=== PATIENT | male | born 1950 | race Caucasian/White ===

== ENCOUNTER 2018-08-06 03:59 | Inpatient (IN) | payer MEDICARE ==
[~2018-08-06] VITALS: Ht 190.5 cm; Wt 79.5 kg
[2018-08-06] VITALS (18 sets, daily range): BP systolic 105–138; BP diastolic 54–80
[~2018-08-06 03:59] MED LIST: CLIN150C8 PO; DIPH-186 PO; FERR325T28 PO; FLO0.4C PO; HYDR-3972 PO; LEVO100T9 PO
[2018-08-06] MEDS ORDERED: NO HOME MEDS (04:12)
[2018-08-06] MEDS ORDERED: ondansetron/PF 4mg/2ml inj IV ONE (04:20)
[2018-08-06] MEDS ORDERED: HYDROmorphone 1 mg/ml syringe IV ONE ×2 (04:20→05:40)
[2018-08-06 05:23] LABS: ALANINE AMINOTRANSFERASE 44 U/L (12-78); ALBUMIN 4.2 G/DL (3.4-5.0); ALBUMIN/GLOBULIN RATIO 1.1 (1.1-1.5); ALKALINE PHOSPHATASE 110 IU/L (46-116); ANION GAP 10 (8-16); ASPARTATE AMINO TRANSFERASE 21 U/L (10-37); BILIRUBIN,TOTAL 0.6 MG/DL (0.1-1.0); BLOOD UREA NITROGEN 17 MG/DL (7-18); BUN/CREATININE RATIO 16.5 (5.4-32.0); CALCIUM 9.4 MG/DL (8.5-10.1); CHLORIDE 99 MMOL/L (99-107); CREATININE 1.03 MG/DL (0.60-1.10); GLUCOSE 155 MG/DL (70-104); LIPASE 252 U/L (73-393); POTASSIUM 3.8 MMOL/L (3.5-5.1); SODIUM 139 MMOL/L (135-145); TOTAL CARBON DIOXIDE 30.5 MMOL/L (24-32); eGFR 72 ML/MIN
[2018-08-06 05:46] LABS: PARTIAL THROMBOPLASTIN TIME 25 SECONDS (22-32); PROTHROMBIN TIME 10.1 SECONDS (9.0-12.0)
[2018-08-06 06:10] LABS: BASOPHILS # (AUTO) 0.1 X10'3 (0-0.2); BASOPHILS % (AUTO) 0.4 % (0-1); EOSINOPHILS # (AUTO) 0.2 X10'3 (0-0.9); HEMATOCRIT 48.3 % (42.0-52.0); HEMOGLOBIN 17.8 g/dl (14.0-17.9); LYMPHOCYTES # (AUTO) 1.6 X10'3 (1.1-4.8); LYMPHOCYTES % (AUTO) 8.1 % (21-51); MEAN CORPUSCULAR HEMOGLOBIN 35.4 PG (27.0-31.0); MEAN CORPUSCULAR HGB CONC 36.9 % (33.0-36.5); MEAN CORPUSCULAR VOLUME 96.1 FL (78-98); MEAN PLATELET VOLUME 10.4 FL (7.4-10.4); MONOCYTES # (AUTO) 1.4 X10'3 (0-0.9); MONOCYTES % (AUTO) 7.1 % (2-12); NEUTROPHILS # (AUTO) 15.9 X10'3 (1.8-7.7); NEUTROPHILS % (AUTO) 83.4 % (42-75); PLATELET COUNT 213 X10'3 (140-440); RED BLOOD COUNT 5.03 X10'6 (4.70-6.10); RED CELL DISTRIBUTION WIDTH 13.4 % (11.5-14.5); WHITE BLOOD COUNT 19.2 X10'3 (4.5-11.0)
[2018-08-06] MEDS ORDERED: levoFLOXACIN-Levaquin 750MG/D5 150 ML IV ONE (06:55)
[2018-08-06 07:24] LABS: CLARITY,URINE CLEAR (Clear); COLOR,URINE Yellow (Yellow); PH,URINE 6.5 (4.8-8.0); UA COLLECTION TYPE CLN CATCH MIDSTREAM
[2018-08-06 07:25] LABS: GLUCOSE, URINE NEGATIVE (Neg); KETONES,URINE NEGATIVE (Neg); LEUKOCYTE ESTERASE ,URINE TRACE (Neg); NITRITES, URINE NEGATIVE (Neg); OCCULT BLOOD,URINE NEGATIVE (Neg); PROTEIN,URINE NEGATIVE (Neg); UROBILINOGEN,URINE 0.2 E.U/dL (0.2-1.0)
[2018-08-06 07:30] LABS: BACTERIA,URINE NONE SEEN /HPF (Neg); RBC,URINE NONE SEEN /HPF (0-2); SQUAMOUS EPITHELIAL CELL,UR FEW /LPF (FEW); WBC,URINE 0-4 /HPF (0-4)
[2018-08-06] MEDS ORDERED: magnesium Cl slow-release 64mg tablet PO PRN (08:45)
[2018-08-06] MEDS ORDERED: ondansetron/PF 4mg/2ml inj IV PRN (08:45)
[2018-08-06] MEDS ORDERED: magnesium 1gm/100ml D5W IVPB 100 ML IV PRN (08:45)
[2018-08-06] MEDS ORDERED: bisacodyl 10mg suppository rectal RC PRN (08:45)
[2018-08-06] MEDS ORDERED: acetaminophen 325mg tablet PO PRN (08:45)
[2018-08-06] MEDS ORDERED: HYDROcodone/acetaminophen 5mg/325mg tablet PO PRN (08:45)
[2018-08-06] MEDS ORDERED: morphine 2 MG/ML inj. syringe IV PRN (08:45)
[2018-08-06] MEDS ORDERED: magnesium 4gm in 100ml NS 100 ML IV PRN (08:45)
[2018-08-06] MEDS ORDERED: magnesium hydroxide 30ml (MOM) UD suspension PO PRN (08:45)
[2018-08-06] MEDS ORDERED: mag hydrox/Alum hydrox/simeth 30ml oral suspension PO PRN (08:45)
[2018-08-06] MEDS ORDERED: potassium Cl 20 mEq SR tablet PO PRN ×2 (08:45)
[2018-08-06] MEDS ORDERED: potassium Cl 40MEQ/NS 500ml 500 ML IV PRN ×2 (08:45)
[2018-08-06] MEDS: potassium cl 20mEq in 1/2 NS 1,000 ML IV SCH (09:25)
[2018-08-06] MEDS: pantoprazole 40 MG vial IV SCH (09:26)
[2018-08-06] MEDS ORDERED: meperidine/PF 100mg/ml syringe ONE (11:23)
[2018-08-06] MEDS ORDERED: fentaNYL/PF 50MCG/1 ML 2ML syringe ONE (11:23)
[2018-08-06] MEDS ORDERED: LIDOcaine Viscous 15ml cup ONE (11:24)
[2018-08-06] MEDS ORDERED: glucagon, human recombinant 1mg kit ONE (11:24)
[2018-08-06] MEDS ORDERED: diphenhydrAMINE 50 mg/ml inj ONE ×2 (11:24→18:06)
[2018-08-06] MEDS ORDERED: MIDAZolam 5mg/5ml vial ONE ×2 (11:24)
[2018-08-06 11:25] LABS: TOTAL CELLS COUNTED 100
[2018-08-06] MEDS ORDERED: iohexol 300 MG/1 ML 50ml polymer ONE (11:25)
[2018-08-06 11:26] LABS: PLATELET ESTIMATE NORMAL
[2018-08-06 11:34] LABS: HYPOGRANULAR PLATELETS MODERATE
[2018-08-06 11:39] LABS: TOXIC GRANULATION 1+
[2018-08-06] MEDS: metroNIDAZOLE-Flagyl 500mg/NS 100 ML IV SCH (17:51)
[2018-08-06] MEDS: docusate sod 100mg capsule PO SCH (20:00)
[2018-08-07] VITALS (14 sets, daily range): BP systolic 108–163; BP diastolic 56–86
[2018-08-07] MEDS: metroNIDAZOLE-Flagyl 500mg/NS 100 ML IV SCH ×4 (01:00→23:29)
[2018-08-07] MEDS: potassium cl 20mEq in 1/2 NS 1,000 ML IV SCH ×3 (01:00→22:50)
[2018-08-07 06:45] LABS: ALANINE AMINOTRANSFERASE 32 U/L (12-78); ALBUMIN 3.3 G/DL (3.4-5.0); ALKALINE PHOSPHATASE 88 IU/L (46-116); ANION GAP 10 (8-16); ASPARTATE AMINO TRANSFERASE 23 U/L (10-37); BILIRUBIN,TOTAL 0.7 MG/DL (0.1-1.0); BLOOD UREA NITROGEN 14 MG/DL (7-18); BUN/CREATININE RATIO 15.7 (5.4-32.0); CALCIUM 8.6 MG/DL (8.5-10.1); CHLORIDE 105 MMOL/L (99-107); CREATININE 0.89 MG/DL (0.60-1.10); GLUCOSE 97 MG/DL (70-104); MAGNESIUM 2.1 MG/DL (1.5-2.4); POTASSIUM 4.4 MMOL/L (3.5-5.1); SODIUM 140 MMOL/L (135-145); TOTAL CARBON DIOXIDE 25.2 MMOL/L (24-32); TOTAL PROTEIN 6.5 G/DL (6.4-8.2); eGFR 86 ML/MIN
[2018-08-07] MEDS: K and/or MAG REPLACEMENT MC SCH (07:25)
[2018-08-07] MEDS: pantoprazole 40 MG vial IV SCH (07:34)
[2018-08-07] MEDS: docusate sod 100mg capsule PO SCH ×2 (07:42→18:41)
[2018-08-07] MEDS: nicotine 21mg patch - 24 hr TD SCH (07:42)
[2018-08-07 07:46] LABS: BASOPHILS # (AUTO) 0.1 X10'3 (0-0.2); BASOPHILS % (AUTO) 0.8 % (0-1); EOSINOPHILS # (AUTO) 0.2 X10'3 (0-0.9); EOSINOPHILS % (AUTO) 2.1 % (0-6); HEMATOCRIT 47.2 % (42.0-52.0); HEMOGLOBIN 16.8 g/dl (14.0-17.9); LYMPHOCYTES # (AUTO) 2.2 X10'3 (1.1-4.8); LYMPHOCYTES % (AUTO) 19.1 % (21-51); MEAN CORPUSCULAR HEMOGLOBIN 33.8 PG (27.0-31.0); MEAN CORPUSCULAR HGB CONC 35.5 % (33.0-36.5); MEAN CORPUSCULAR VOLUME 95.1 FL (78-98); MEAN PLATELET VOLUME 9.5 FL (7.4-10.4); MONOCYTES # (AUTO) 1.2 X10'3 (0-0.9); MONOCYTES % (AUTO) 10.5 % (2-12); NEUTROPHILS % (AUTO) 67.5 % (42-75); PLATELET COUNT 171 X10'3 (140-440); RED BLOOD COUNT 4.96 X10'6 (4.70-6.10); RED CELL DISTRIBUTION WIDTH 13.3 % (11.5-14.5); WHITE BLOOD COUNT 11.7 X10'3 (4.5-11.0)
[2018-08-07] MEDS: levoFLOXACIN-Levaquin 500mg/D5 100 ML IV SCH (09:06)
[2018-08-07] MEDS ORDERED: BUPIVAcaine/PF 2.5mg/ml (0.25%) 10ml vial ONE (16:56)
[2018-08-07] MEDS ORDERED: morphine 4 MG/ML inj SYRINge IV PRN (19:15)
[2018-08-07] MEDS ORDERED: meperidine/PF 25mg/ml syringe IV PRN ×2 (19:15)
[2018-08-07] MEDS ORDERED: proCHLORperazine 10 MG/2 ml inj IV PRN (19:15)
[2018-08-07] MEDS ORDERED: ringers solution, lacted 1,000 ML IV SCH (19:15)
[2018-08-07] MEDS ORDERED: ondansetron/PF 4mg/2ml inj IV PRN ×2 (19:15→21:35)
[2018-08-07] MEDS ORDERED: sevoflurane 250ml liquid IH ONE (20:03)
[2018-08-07] MEDS ORDERED: rocuronium 10mg/ml inj IV ONE (20:04)
[2018-08-07] MEDS ORDERED: fentaNYL /PF 50mcg/ml 5ml ampule ONE (20:04)
[2018-08-07] MEDS ORDERED: midazolam 2 mg/2 ml injection ONE (20:04)
[2018-08-07] MEDS ORDERED: propofol inj 20 ML IV ONE (20:05)
[2018-08-07] MEDS ORDERED: clindamycin phosphate 150mg/ml inj. ONE (20:47)
[2018-08-07] MEDS ORDERED: gentamicin 40 MG/1 ML inj ONE (20:47)
[2018-08-07] MEDS ORDERED: sugammadex 200mg/2ml injection IV ONE (21:23)
[2018-08-07] MEDS ORDERED: HYDROmorphone inj. 0.5 MG/0.5 ML DISP.SYRIN IV PRN (21:35)
[2018-08-07] MEDS: meperidine/PF 25mg/ml syringe IV PRN ×2 (21:45→22:05)
[2018-08-07] MEDS ORDERED: ketorolac trometh. 30mg/ml inj. IM ONE (21:45)
[2018-08-07] MEDS: morphine 4 MG/ML inj SYRINge IV PRN ×3 (21:45→22:06)
[2018-08-07] MEDS: morphine 2 MG/ML inj. syringe IV PRN (22:54)
[2018-08-08] VITALS (9 sets, daily range): BP systolic 109–131; BP diastolic 54–70
[2018-08-08] MEDS: morphine 2 MG/ML inj. syringe IV PRN (04:06)
[2018-08-08 06:12] LABS: ALANINE AMINOTRANSFERASE 26 U/L (12-78); ALBUMIN 2.7 G/DL (3.4-5.0); ALKALINE PHOSPHATASE 74 IU/L (46-116); ANION GAP 9 (8-16); ASPARTATE AMINO TRANSFERASE 24 U/L (10-37); BILIRUBIN,TOTAL 0.7 MG/DL (0.1-1.0); BLOOD UREA NITROGEN 13 MG/DL (7-18); BUN/CREATININE RATIO 15.3 (5.4-32.0); CALCIUM 7.9 MG/DL (8.5-10.1); CHLORIDE 104 MMOL/L (99-107); CREATININE 0.85 MG/DL (0.60-1.10); GLUCOSE 73 MG/DL (70-104); MAGNESIUM 1.7 MG/DL (1.5-2.4); POTASSIUM 4.4 MMOL/L (3.5-5.1); SODIUM 137 MMOL/L (135-145); TOTAL CARBON DIOXIDE 24.2 MMOL/L (24-32); TOTAL PROTEIN 5.5 G/DL (6.4-8.2); eGFR 90 ML/MIN
[2018-08-08 06:54] LABS: BASOPHILS # (AUTO) 0.1 X10'3 (0-0.2); BASOPHILS % (AUTO) 0.4 % (0-1); EOSINOPHILS # (AUTO) 0.1 X10'3 (0-0.9); EOSINOPHILS % (AUTO) 0.7 % (0-6); HEMATOCRIT 42.1 % (42.0-52.0); HEMOGLOBIN 15.1 g/dl (14.0-17.9); LYMPHOCYTES # (AUTO) 1.3 X10'3 (1.1-4.8); LYMPHOCYTES % (AUTO) 9.7 % (21-51); MEAN CORPUSCULAR HEMOGLOBIN 33.8 PG (27.0-31.0); MEAN CORPUSCULAR VOLUME 93.8 FL (78-98); MEAN PLATELET VOLUME 8.8 FL (7.4-10.4); MONOCYTES # (AUTO) 1.3 X10'3 (0-0.9); MONOCYTES % (AUTO) 10.1 % (2-12); NEUTROPHILS # (AUTO) 10.2 X10'3 (1.8-7.7); NEUTROPHILS % (AUTO) 79.1 % (42-75); PLATELET COUNT 147 X10'3 (140-440); RED BLOOD COUNT 4.48 X10'6 (4.70-6.10); RED CELL DISTRIBUTION WIDTH 12.9 % (11.5-14.5)
[2018-08-08] MEDS ORDERED: HYDROmorphone 1 mg/ml syringe ONE ×2 (07:40→12:22)
[2018-08-08] MEDS: metroNIDAZOLE-Flagyl 500mg/NS 100 ML IV SCH (07:45)
[2018-08-08] MEDS: pantoprazole 40 MG vial IV SCH (07:52)
[2018-08-08] MEDS: docusate sod 100mg capsule PO SCH ×2 (07:53→23:02)
[2018-08-08] MEDS: nicotine 21mg patch - 24 hr TD SCH (07:53)
[2018-08-08] MEDS: K and/or MAG REPLACEMENT MC SCH (07:54)
[2018-08-08] MEDS: levoFLOXACIN-Levaquin 500mg/D5 100 ML IV SCH (09:47)
[2018-08-08] MEDS ORDERED: naloxone 0.4 mg/ml inj IV PRN (13:10)
[2018-08-08] MEDS ORDERED: CADD PCA waste documentation MC PRN (13:10)
[2018-08-08] MEDS: HYDROmorphone/NS 1 mg/ml CADD 50 ML IV SCH ×6 (13:47→23:00)
[2018-08-08] MEDS: potassium cl 20mEq in 1/2 NS 1,000 ML IV SCH (15:05)
[2018-08-09] VITALS: BP 124/73
[2018-08-09] MEDS: HYDROmorphone/NS 1 mg/ml CADD 50 ML IV SCH ×5 (01:00→09:00)
[2018-08-09] MEDS: potassium cl 20mEq in 1/2 NS 1,000 ML IV SCH (04:42)
[2018-08-09 06:50] LABS: ALANINE AMINOTRANSFERASE 28 U/L (12-78); ALBUMIN 2.9 G/DL (3.4-5.0); ALKALINE PHOSPHATASE 82 IU/L (46-116); ANION GAP 10 (8-16); ASPARTATE AMINO TRANSFERASE 28 U/L (10-37); BILIRUBIN,TOTAL 0.7 MG/DL (0.1-1.0); BLOOD UREA NITROGEN 8 MG/DL (7-18); CALCIUM 8.2 MG/DL (8.5-10.1); CHLORIDE 98 MMOL/L (99-107); CREATININE 0.73 MG/DL (0.60-1.10); GLUCOSE 100 MG/DL (70-104); MAGNESIUM 1.6 MG/DL (1.5-2.4); POTASSIUM 4.1 MMOL/L (3.5-5.1); SODIUM 132 MMOL/L (135-145); TOTAL CARBON DIOXIDE 24.2 MMOL/L (24-32); TOTAL PROTEIN 5.9 G/DL (6.4-8.2); eGFR > 90 ML/MIN
[2018-08-09 07:08] LABS: BASOPHILS # (AUTO) 0.1 X10'3 (0-0.2); BASOPHILS % (AUTO) 0.7 % (0-1); EOSINOPHILS # (AUTO) 0.2 X10'3 (0-0.9); EOSINOPHILS % (AUTO) 1.9 % (0-6); HEMOGLOBIN 14.9 g/dl (14.0-17.9); LYMPHOCYTES # (AUTO) 1.4 X10'3 (1.1-4.8); LYMPHOCYTES % (AUTO) 13.6 % (21-51); MEAN CORPUSCULAR HEMOGLOBIN 34.5 PG (27.0-31.0); MEAN CORPUSCULAR HGB CONC 36.3 % (33.0-36.5); MEAN CORPUSCULAR VOLUME 95.2 FL (78-98); MEAN PLATELET VOLUME 8.5 FL (7.4-10.4); MONOCYTES # (AUTO) 1.4 X10'3 (0-0.9); MONOCYTES % (AUTO) 13.6 % (2-12); NEUTROPHILS % (AUTO) 70.2 % (42-75); PLATELET COUNT 146 X10'3 (140-440); WHITE BLOOD COUNT 10.1 X10'3 (4.5-11.0)
[2018-08-09 08:00] VITALS: BP 145/80
[2018-08-09] MEDS ORDERED: methylnaltrexone br 12mg/0.6ml inj***SubQ only SQ SCH (08:00)
[2018-08-09] MEDS: nicotine 21mg patch - 24 hr TD SCH (08:00)
[2018-08-09] MEDS: K and/or MAG REPLACEMENT MC SCH (08:00)
[2018-08-09] MEDS: pantoprazole 40 MG vial IV SCH (09:34)
[2018-08-09] MEDS: docusate sod 100mg capsule PO SCH ×2 (09:35→19:26)
[2018-08-09] MEDS: HYDROcodone/acetaminophen 10/325mg tab PO PRN ×3 (11:51→19:59)
[2018-08-09 12:00] VITALS: BP 149/83
[2018-08-09 19:00] VITALS: BP 157/71
[2018-08-10] VITALS: BP 127/61
[2018-08-10] MEDS: HYDROcodone/acetaminophen 10/325mg tab PO PRN ×3 (04:01→08:04)
[2018-08-10 06:25] LABS: BASOPHILS % (AUTO) 0.2 % (0-1); EOSINOPHILS # (AUTO) 0.2 X10'3 (0-0.9); HEMATOCRIT 43.4 % (42.0-52.0); HEMOGLOBIN 14.7 g/dl (14.0-17.9); LYMPHOCYTES # (AUTO) 0.7 X10'3 (1.1-4.8); LYMPHOCYTES % (AUTO) 8.3 % (21-51); MEAN CORPUSCULAR HEMOGLOBIN 31.2 PG (27.0-31.0); MEAN CORPUSCULAR HGB CONC 33.9 % (33.0-36.5); MEAN PLATELET VOLUME 8.9 FL (7.4-10.4); MONOCYTES # (AUTO) 1.1 X10'3 (0-0.9); NEUTROPHILS # (AUTO) 6.5 X10'3 (1.8-7.7); NEUTROPHILS % (AUTO) 76.5 % (42-75); PLATELET COUNT 138 X10'3 (140-440); RED BLOOD COUNT 4.72 X10'6 (4.70-6.10); RED CELL DISTRIBUTION WIDTH 13.8 % (11.5-14.5); WHITE BLOOD COUNT 8.6 X10'3 (4.5-11.0)
[2018-08-10 06:30] LABS: ALANINE AMINOTRANSFERASE 28 U/L (12-78); ALBUMIN 2.8 G/DL (3.4-5.0); ALBUMIN/GLOBULIN RATIO 0.9 (1.1-1.5); ALKALINE PHOSPHATASE 75 IU/L (46-116); ANION GAP 7 (8-16); ASPARTATE AMINO TRANSFERASE 28 U/L (10-37); BILIRUBIN,TOTAL 0.8 MG/DL (0.1-1.0); BLOOD UREA NITROGEN 7 MG/DL (7-18); BUN/CREATININE RATIO 9.5 (5.4-32.0); CALCIUM 8.5 MG/DL (8.5-10.1); CHLORIDE 98 MMOL/L (99-107); CREATININE 0.74 MG/DL (0.60-1.10); GLUCOSE 92 MG/DL (70-104); MAGNESIUM 1.6 MG/DL (1.5-2.4); POTASSIUM 3.9 MMOL/L (3.5-5.1); SODIUM 132 MMOL/L (135-145); TOTAL CARBON DIOXIDE 26.7 MMOL/L (24-32); TOTAL PROTEIN 5.9 G/DL (6.4-8.2); eGFR > 90 ML/MIN
[2018-08-10 07:17] VITALS: BP 140/69
[2018-08-10] MEDS ORDERED: pantoprazole 40mg Tablet.DR PO SCH (07:30)
[2018-08-10] MEDS: nicotine 21mg patch - 24 hr TD SCH (08:00)
[2018-08-10] MEDS: K and/or MAG REPLACEMENT MC SCH (08:00)
[2018-08-10] MEDS ORDERED: HYDR-4383 PO (08:02)
[2018-08-10] MEDS: docusate sod 100mg capsule PO SCH (08:04)
== END 2018-08-10 10:47 | disposition home or self-care (01) | DRG 854 ==
LOC: ER 04:00 → ED HOLD 08:44 → EDBEDREQ 09:42 → SUR 3N 10:05
PROVIDERS: ADMIT Internal Medicine; ATTEND Internal Medicine
PROC: 0F798DZ Dilation of Common Bile Duct with Intraluminal Device, Via Natural or Artificial Opening Endoscopic (ICD-10-PCS; 2018-08-06)
PROC: 0FC98ZZ Extirpation of Matter from Common Bile Duct, Via Natural or Artificial Opening Endoscopic (ICD-10-PCS; 2018-08-06)
PROC: BF101ZZ Fluoroscopy of Bile Ducts using Low Osmolar Contrast (ICD-10-PCS; 2018-08-06)
PROC: 0DNW0ZZ Release Peritoneum, Open Approach (ICD-10-PCS; 2018-08-07)
PROC: 0FJ44ZZ Inspection of Gallbladder, Percutaneous Endoscopic Approach (ICD-10-PCS; 2018-08-07)
PROC: 0FT40ZZ Resection of Gallbladder, Open Approach (ICD-10-PCS; principal; 2018-08-07 20:03)
PROC: 3E02340 Introduction of Influenza Vaccine into Muscle, Percutaneous Approach (ICD-10-PCS; 2018-08-10)
DX: A41.9 Sepsis, unspecified organism (principal); K80.63 Calculus of gallbladder and bile duct with acute cholecystitis with obstruction; K56.7 Ileus, unspecified; K43.9 Ventral hernia without obstruction or gangrene; J44.9 Chronic obstructive pulmonary disease, unspecified; K66.0 Peritoneal adhesions (postprocedural) (postinfection); K76.89 Other specified diseases of liver; N40.1 Benign prostatic hyperplasia with lower urinary tract symptoms; F17.210 Nicotine dependence, cigarettes, uncomplicated; R33.8 Other retention of urine; Z53.31 Laparoscopic surgical procedure converted to open procedure; Z23 Encounter for immunization; Z88.0 Allergy status to penicillin; Z79.899 Other long term (current) drug therapy; Z85.048 Personal history of other malignant neoplasm of rectum, rectosigmoid junction, and anus; Z82.49 Family history of ischemic heart disease and other diseases of the circulatory system; Z82.3 Family history of stroke; Z84.89 Family history of other specified conditions; Z71.6 Tobacco abuse counseling
CPT/HCPCS: 36415; 43274; 71045; 74176; 76700; 80053; 81001; 83605; 83690; 83735; 84484; 85025; 85610; 85730; 87070; 88304; 93005; 96365; 96375; 96376; 99152; 99153; 99285; A4315; A4620; A6251; A6449; A7000; C9113; C9399; J1170; J1200; J1580; J1610; J1885; J1956; J2175; J2250; J2270; J2405; J2704; J3010; J3490; J7030; J7120; Q9967